=== PATIENT | female | born 1940 | race Caucasian/White ===

== ENCOUNTER 2020-08-05 10:27 | Emergency (ER) | payer OTHER, MEDICAID ==
[~2020-08-05] VITALS: Ht 149.9 cm; Wt 57.6 kg
[2020-08-05 10:33] VITALS: BP 120/72
--- NOTE | 2020-08-05 10:47 | NUR ---
80 YEAR OLD FEMALE COMPLAINS OF LOWER BACK PAIN X 4 DAYS. PT STATES THAT THE PAIN RADIATES FROM LOWER BACK TO LEFT LEG. PT STATES PAIN MAKES IT HARD TO WALK, USES A WALKER. PT DENIES HEAVY LIFTING OR TRAUMA. PT DENIES ANY NEW PROBLEMS WITH URINATION OR DEFECATION. PT AOX4, BREATHING EVEN AND UNLABORED, SKIN WARM AND DRY. BED IN LOWEST POSITION, LOCKED, BED RAIL UPX1. PMH - DM2, APPENDECTOMY, HYSTERECTOMY ALLERGIES - NKA
[2020-08-05] MEDS ORDERED: KETOROLAC 30 MG/ML VIAL IM ONE (10:50)
--- NOTE | 2020-08-05 10:59 | NUR ---
PT TAKEN TO XRAY
[2020-08-05 12:00] VITALS: BP 143/97
--- NOTE | 2020-08-05 12:00 | NUR ---
Patient discharged with v/s stable. Written and verbal after care instructions about sciatica given and explained. Patient alert, oriented and verbalized understanding of instructions. Ambulatory with steady gait. All questions addressed prior to discharge. ID band removed. Patient advised to follow up with PMD. Rx of norco and naprosyn given. Patient educated on indication of medication including possible reaction and side effects. Opportunity to ask questions provided and answered.
== END 2020-08-05 12:00 | disposition home or self-care (01) ==
LOC: MED 10:27
DX: M54.42 Lumbago with sciatica, left side (principal); E11.9 Type 2 diabetes mellitus without complications; Z90.49 Acquired absence of other specified parts of digestive tract; Z98.890 Other specified postprocedural states
CPT/HCPCS: 72100; 96372; 99283; J1885

== ENCOUNTER 2020-12-25 11:01 | Emergency (ER) | payer OTHER, MEDICAID ==
[~2020-12-25] VITALS: Ht 137.2 cm; Wt 55.3 kg
[2020-12-25 11:09] VITALS: BP 118/68
--- NOTE | 2020-12-25 11:13 | NUR ---
PT AMBULATED TO BED 6.
--- NOTE | 2020-12-25 11:28 | NUR ---
Patient being evaluated by Dr. Bowens at bedside.
[2020-12-25] MEDS ORDERED: CIPROFLOXACIN 250 MG TAB PO ONE (11:45)
[2020-12-25] MEDS ORDERED: KETOROLAC 30 MG/ML VIAL IM ONE (11:45)
--- NOTE | 2020-12-25 12:00 | NUR ---
C/O RIGHT EAR PAIN X3 DAYS, 7/10 PAIN, SHARP PAIN RADIATING TO JAW. GREEN DISCHARGE NOTED TO RIGHT EAR. PATIENT STATES HER HEARING IS AFFECTED ON RIGHT EAR. NO FEVER.
[2020-12-25 12:34] VITALS: BP 118/68
--- NOTE | 2020-12-25 12:34 | NUR ---
Patient discharged with v/s stable. Written and verbal after care instructions given and explained. Patient alert, oriented and verbalized understanding of instructions. Ambulatory with steady gait. All questions addressed prior to discharge. ID band removed. Patient advised to follow up with PMD. Rx of CIPROFLOXACIN, ACETAMINOPHEN given. Patient educated on indication of medication including possible reaction and side effects. Opportunity to ask questions provided and answered.
== END 2020-12-25 12:34 | disposition home or self-care (01) ==
LOC: MED 11:01
DX: H60.91 Unspecified otitis externa, right ear (principal); E11.9 Type 2 diabetes mellitus without complications; Z90.49 Acquired absence of other specified parts of digestive tract; Z90.710 Acquired absence of both cervix and uterus
CPT/HCPCS: 96372; 99283; J1885

== ENCOUNTER 2021-01-02 12:50 | Emergency (ER) | payer OTHER, MEDICAID ==
[~2021-01-02] VITALS: Ht 149.9 cm; Wt 55.3 kg
[2021-01-02 13:04] VITALS: BP 114/72
--- NOTE | 2021-01-02 13:13 | NUR ---
PATIENT WHEELCHAIR ASSISTED TO BED 6.
--- NOTE | 2021-01-02 13:22 | NUR ---
80 y/o female from home c/o right ear discomfort with yellow drainage x 1 wk. Pt states she was seen and given antibiotics for ear infection 1 wk ago with no relief of symtpoms. States minor change in hearing to right side. VSS medhx: DM
[2021-01-02] MEDS ORDERED: NACL 0.9% 500 ML IV ONE (13:50)
[2021-01-02] MEDS ORDERED: HYDROcodone/APAP 5/325 MG 1 TAB TAB PO ONE (13:50)
[2021-01-02 14:33] LABS: BASOPHILS % (AUTO) 0.5 % (0.0-2.0); EOSINOPHILS # (AUTO) 0.1 K/uL (0-0.4); HEMATOCRIT 35.8 % (36-48); HEMOGLOBIN 12.2 g/dL (12.0-16.0); LYMPHOCYTES # (AUTO) 1.9 K/uL (2.5-16.5); LYMPHOCYTES % (AUTO) 23.8 % (20.5-51.1); MEAN CORPUSCULAR HEMOGLOBIN 32 pg (27-31); MEAN CORPUSCULAR HGB CONC 34 g/dL (33-37); MEAN CORPUSCULAR VOLUME 93.4 fL (80-94); MONOCYTES # (AUTO) 0.5 K/uL (0.8-1.0); MONOCYTES % (AUTO) 6.6 % (1.7-9.3); NEUTROPHILS # (AUTO) 5.4 K/uL (1.8-7.7); NEUTROPHILS % (AUTO) 68.1 % (42.2-75.2); PLATELET COUNT (AUTO) 390 K/uL (140-450); RED BLOOD CELL COUNT(AUTO) 3.83 MIL/uL (4.20-5.40); RED CELL DISTRIBUTION WIDTH 12.7 % (11.6-13.7); WHITE BLOOD COUNT (AUTO) 7.9 K/uL (4.8-10.8)
--- NOTE | 2021-01-02 14:35 | NUR ---
CONSENT FOR CT WITH CONTRAST OBTAINED FROM PT
[2021-01-02 15:21] LABS: ALBUMIN 3.2 g/dL (3.4-5.0); ANION GAP 9.7 (8-16); ASPARTATE AMINOTRANSFERASE 15 U/L (15-37); CARBON DIOXIDE 29.4 mmol/L (21-32); CHLORIDE 101 mmol/L (98-107); GLUCOSE 204 mg/dL (74-106); POTASSIUM 4.1 mmol/L (3.5-5.1); SODIUM SERUM 136 mmol/L (136-145); TOTAL BILIRUBIN 0.4 mg/dL (0.0-1.0); UREA NITROGEN, BLOOD 18 mg/dL (7-18)
--- NOTE | 2021-01-02 15:23 | NUR ---
PT REPORTS 0/10 PAIN POST PO NORCO
--- NOTE | 2021-01-02 15:25 | NUR ---
CALLED RAD TO LET THEM KNOW PT IS READY FOR CT
--- NOTE | 2021-01-02 15:42 | NUR ---
PT TAKEN TO CT VIA WHEELCHAIR
--- NOTE | 2021-01-02 16:00 | NUR ---
PT RETURNED FROM CT VIA [facility]
[2021-01-02] MEDS ORDERED: PIPERACILLIN/TAZOBACTAM 4.5 GM in DEXTROSE 5% 100 ML IV ONE (16:55)
--- NOTE | 2021-01-02 17:00 | NUR ---
PT RESTING IN BED, EQUAL CHEST RISE AND FALL. BED LOCKED AND IN LOWEST POSITION. SIDE RAILS X1.
[2021-01-02] MEDS ORDERED: PIPERACILLIN/TAZOBACTAM 4.5 GM VIAL IV ONE (17:07)
[2021-01-02] MEDS ORDERED: CIPR500T4 PO (18:03)
[2021-01-02] MEDS ORDERED: GABA300C PO (18:04)
[2021-01-02] MEDS ORDERED: MECL-303 PO (18:04)
[2021-01-02] MEDS ORDERED: MIRA25TE PO (18:06)
[2021-01-02] MEDS ORDERED: INSU100S22 SUBQ (18:06)
[2021-01-02] MEDS ORDERED: METF500T PO (18:07)
[2021-01-02] MEDS ORDERED: VANCOMYCIN 500 MG VIAL ONE (18:23)
[2021-01-02] MEDS: VANCOMYCIN 500 MG in DEXTROSE 5% 100 ML IV SCH (18:31)
--- NOTE | 2021-01-02 18:43 | NUR ---
UMESH SWAB COLLECTED AND TAKEN TO LAB
--- NOTE | 2021-01-02 19:15 | NUR ---
REPORT GIVEN TO BRITTANI SOL. TRANSFER OF CARE AT THIS TIME.
--- NOTE | 2021-01-02 19:17 | NUR ---
RECEIVED REPORT FROM BRITTANI ARCEO FOR CONTINUATION OF CARE AT THIS TIME.
--- NOTE | 2021-01-02 19:45 | NUR ---
pt ambulated to ed restroom with walker
--- NOTE | 2021-01-02 19:51 | NUR ---
PT AMBULATED TO ED BED 6 WITH WALKER
--- NOTE | 2021-01-02 19:55 | NUR ---
PT IS SITTING UPRIGHT WITH HOB ELEVATED IN SEMI FOWLERS POSITION, BED IS LOCKED AND IN LOWEST POSITION, SIDE RAILSX1. NO ACUTE DISTRESS NOTED AT THIS TIME. PT IS ON HER PHONE. CALL LIGHT WITHIN REACH.
--- NOTE | 2021-01-02 20:20 | NUR ---
SPOKE WITH PT TO OBTAIN CONSENT TO GIVE INFORMATION TO GIVE INFORMATION TO HER SON ROXANA MADRID [phone]. HE WAS MADE AWARE THAT THE PT IS IN THE PROCESS OF POSSIBLY BEING TRANSFERRED TO [facility].
--- NOTE | 2021-01-02 20:45 | NUR ---
PT'S SON ROXANA MADRID CALLED BACK AND NOTIFIED THAT THERE IS NOT AN ACCEPTING DOCTOR YET AND THAT HE WILL BE NOTIFIED WHEN THE PT IS TRANSFERRED.
--- NOTE | 2021-01-02 21:00 | NUR ---
PT IS SITTING UPRIGHT WITH HOB ELEVATED IN SEMI FOWLERS POSITION, BED IS LOCKED AND IN LOWEST POSITION, SIDE RAILSX1. NO ACUTE DISTRESS NOTED AT THIS TIME. CALL LIGHT WITHIN REACH.
--- NOTE | 2021-01-02 22:00 | NUR ---
PT AMBULATED TO ED RESTROOM WITH WALKER
--- NOTE | 2021-01-02 22:05 | NUR ---
CALLED [facility] TO BRING PT ZACHARY
--- NOTE | 2021-01-02 22:10 | NUR ---
PT AMBULATED BACK TO ED BED 6 WITH WALKER
--- NOTE | 2021-01-02 23:05 | NUR ---
PT AMBULATED TO ED RESTROOM WITH WALKER
--- NOTE | 2021-01-02 23:12 | NUR ---
CALLED [facility] TO REMIND HIM OF THE PTS REQUEST FOR SANDWICHES
--- NOTE | 2021-01-02 23:15 | NUR ---
PT AMBULATED BACK TO ED BED 5 WITH WALKER
--- NOTE | 2021-01-02 23:29 | NUR ---
PT PROVIDED WITH A TURKEY SANDWICH AT THIS TIME
--- NOTE | 2021-01-02 23:40 | NUR ---
PT IS RESTING WITH HER EYES CLOSED, LIGHTS TURNED OFF PER PT REQUEST. PT IS CONNECTED TO THE BORDER MEASURER. BED IS LOCKED AND IN LOWEST POSITION. SIDE RAILSX1. NO ACUTE DISTRESS NOTED. CALL LIGHT WITHIN REACH.
--- NOTE | 2021-01-03 00:11 | NUR ---
PER ADMITTING RETURN CALL FROM [facility] SQL ANALYST NATALIIA WHO SPOKE WITH ACCEPTING ENT DR. DOMINGUEZ REQUESTING PATIENT BE NPO FOR PLANNED SURGERY TOMORROW AT [facility]. AWAITING CALL BACK FROM NATALIIA WITH INFO ON ACCEPTING HOSPITALIST AND TRANSFER INFORMATION
--- NOTE | 2021-01-03 00:45 | NUR ---
PT IS ASLEEP, VISIBLE RISE AND FALL OF CHEST. PT IS CONNECTED TO THE IMPLEMENTATION PROJECT COORDINATOR, SAO2@99% RA. BED IS LOCKED AND IN LOWEST POSITION. SIDE RAILSX1. NO ACUTE DISTRESS NOTED. CALL LIGHT WITHIN REACH.
[2021-01-03] MEDS ORDERED: VANCOMYCIN 1,000 MG in DEXTROSE 5% 250 ML IV ONE (01:30)
[2021-01-03] MEDS ORDERED: PIPERACILLIN/TAZOBACTAM 3.375 GM in DEXTROSE 5% 50 ML IV ONE (01:30)
[2021-01-03] MEDS ORDERED: PIPERACILLIN/TAZOBACTAM 3.375 GM VIAL IV ONE (01:36)
--- NOTE | 2021-01-03 01:43 | NUR ---
PT IS ASLEEP. PT IS CONNECTED TO THE DISPOSAL PLANT OPERATOR. BED IS LOCKED AND IN LOWEST POSITION. SIDE RAILSX1. NO ACUTE DISTRESS NOTED. CALL LIGHT WITHIN REACH. PT ON ZOSYN IVPB PER ERMD ORDERS. ALL ORDERS CARRIED OUT.
--- NOTE | 2021-01-03 01:50 | NUR ---
PT AMBULATED TO ED RESTROOM WITH WALKER
--- NOTE | 2021-01-03 01:58 | NUR ---
PT AMBULATED BACK TO ED BED 5 WITH WALKER
--- NOTE | 2021-01-03 02:04 | NUR ---
PT PROVIDED WITH CLEAN LINENS AND WARM BLANKETS FOR COMFORT.
--- NOTE | 2021-01-03 03:00 | NUR ---
PT IS ASLEEP. PT IS CONNECTED TO THE ADULT CAREGIVER. BED IS LOCKED AND IN LOWEST POSITION. SIDE RAILSX1. NO ACUTE DISTRESS NOTED. CALL LIGHT WITHIN REACH. ALL ORDERS CARRIED OUT.
--- NOTE | 2021-01-03 03:45 | NUR ---
PT SPEAKING ON THE PHONE WITH HER DAUGHTER, PT REPOSITIONED HERSELF FOR COMFORT, PT IS LYING ON HER LEFT SIDE. PT IS CONNECTED TO THE DREDGING INSPECTOR. NO ACUTE DISTRESS NOTED. BED IS LOCKED AND IN LOWEST POSITION. SIDE RAILSX1. ALL ORDERS CARRIED OUT.
--- NOTE | 2021-01-03 04:45 | NUR ---
PT IS SLEEPING, VISIBLE RISE AND FALL OF CHEST. BED IS LOCKED AND IN LOWEST POSITION. SIDE RAILSX1. NO ACUTE DISTRESS NOTED. ALL ORDERS CARRIED OUT AT THIS TIME.
--- NOTE | 2021-01-03 05:36 | NUR ---
PT IS ASLEEP ON HER LEFT SIDE. BED IS POSITION IN SEMI FOWLERS POSITION, VISIBLE RISE AND FALL OF CHEST. BED IS LOCKED AND IN LOWEST POSITION. SIDE RAILSX1. NO ACUTE DISTRESS NOTED. ALL ORDERS CARRIED OUT AT THIS TIME.
--- NOTE | 2021-01-03 06:00 | NUR ---
REPORT RECEIVED FROM SWETA PETER FOR CONTINUITY OF CARE
--- NOTE | 2021-01-03 06:00 | NUR ---
GAVE REPORT TO BRITTANI WASSERMAN FOR TRANSFER OF CARE AT THIS TIME.
--- NOTE | 2021-01-03 07:12 | NUR ---
REPORT GIVEN TO TREMAINE PETER FOR CONTINUITY OF CARE
--- NOTE | 2021-01-03 07:14 | NUR ---
RECEIVED REPORT FROM LISY PETER. TRANSFER OF CARE AT THIS TIME
--- NOTE | 2021-01-03 08:24 | NUR ---
Wily strickland in [facility] - 01/03/21 at 1316 by [email or web address] PT AMBULATED TO RESTOOM WITH WALKER.
--- NOTE | 2021-01-03 08:29 | NUR ---
PT AMBULATED WITH WALKER WITH STEADY GAIT. BACK IN ROOM AND HOOKED UP TO MONITOR
[2021-01-03] MEDS ORDERED: PIPERACILLIN/TAZOBACTAM 4.5 GM in DEXTROSE 5% 100 ML IV ONE (10:30)
[2021-01-03] MEDS ORDERED: HYDROcodone/APAP 5/325 MG 1 TAB TAB PO ONE (10:30)
--- NOTE | 2021-01-03 10:36 | NUR ---
PT STATING EAR PAIN IS 05/31. DR SHABAZZ MADE AWARE. PT ASKING WHEN IS SHE LEAVING. INFORMED PT THAT WE ARE WAITING FOR A BED TO OPEN UP TO TRANSFER TO A [facility] TO SEE A SPECIALIST.
--- NOTE | 2021-01-03 10:44 | NUR ---
Spoke with anton Wilson [phone] for pt updates at this time.
[2021-01-03] MEDS ORDERED: PIPERACILLIN/TAZOBACTAM 4.5 GM VIAL IV ONE (10:47)
--- NOTE | 2021-01-03 11:43 | NUR ---
PT SLEEPING IN BED, BREATHING EVEN AND UNLABORED. BED IN LOWEST POSITION, BRAKES LOCKED, X1 SIDERAIL UP. VSS. WILL CONTINUE TO MONITOR
--- NOTE | 2021-01-03 13:14 | NUR ---
PT HAD AN INCONTINENT EPISODE. SHEETS CHANGED, PROVIDED NEW GOWN, PAD, AND BRIEFS. PT AMBULATED TO RESTROOM WITH WALKER.
--- NOTE | 2021-01-03 14:50 | NUR ---
PT SLEEPING IN BED WITH EVEN AND UNLABORED RESPIRATIONS OBSERVED. BED IN LOWEST POSITION, BRAKES LOCKED, X1 SIDERAIL UP. VSS. WILL CONTINUE TO MONITOR.
--- NOTE | 2021-01-03 16:29 | NUR ---
PT SLEEPING IN BED WITH EVEN AND UNLABORED RESPIRATIONS OBSERVED. BED IN LOWEST POSITION, BRAKES LOCKED, X1 SIDERAIL UP. VSS. WILL CONTINUE TO MONITOR.
--- NOTE | 2021-01-03 18:07 | NUR ---
REPORT GIVEN TO ALICIA PETER AT [facility]. WAITING FOR TRANSFER TO THE FACILITY.
[2021-01-03] MEDS ORDERED: VANCOMYCIN 1,000 MG VIAL ONE (18:10)
[2021-01-03] MEDS ORDERED: VANCOMYCIN 500 MG VIAL ONE (18:11)
[2021-01-03] MEDS: VANCOMYCIN 500 MG in DEXTROSE 5% 100 ML IV SCH (18:25)
--- NOTE | 2021-01-03 18:37 | NUR ---
Spoke with anton Wilson [phone] for pt updates at this time.
--- NOTE | 2021-01-03 19:13 | NUR ---
RECIVED REPORT FROM BENITA PETER. CONTINUATION OF CARE.
--- NOTE | 2021-01-03 19:14 | NUR ---
GAVE REPORT TO KENDELL PETER. TRANSFER OF CARE AT THIS TIME.
--- NOTE | 2021-01-03 19:33 | NUR ---
TRANSFER CONSENT SIGNED BY PATIENT. PATIENT ALERT AND ORIENTED X 4. PATIENT IN BED EATING DINNER. VSS. IV REMAINS PATIENT.
[2021-01-03 20:08] VITALS: BP 109/74
--- NOTE | 2021-01-03 20:08 | NUR ---
Patient to be transferred to [facility]. Is being transferred due to R MASTOIDITIS. Receiving facility has accepting physician and available space. ER physician has signed transfer form. Patient or responsible libertarian has agreed to transfer and signed form. Patient belongings inventoried and will be sent with patient. Copy of nursing notes, lab reports, EKG, Physicians Orders and X-rays to be sent with patient. Report called to ALICIA PETER BY BENITA PETER at receiving facility.
--- NOTE | 2021-01-03 20:08 | NUR ---
PATIENT PICKED UP BY [facility] FOR TRANSPORT TO [facility].
== END 2021-01-02 20:08 | disposition short-term general hospital (02) ==
LOC: MED 12:50
DX: H70.91 Unspecified mastoiditis, right ear (principal); H60.391 Other infective otitis externa, right ear; H66.91 Otitis media, unspecified, right ear; E11.9 Type 2 diabetes mellitus without complications; R42 Dizziness and giddiness; Z79.899 Other long term (current) drug therapy; Z20.828 Contact with and (suspected) exposure to other viral communicable diseases
CPT/HCPCS: 36415; 70481; 80053; 83605; 85025; 87040; 87426; 96365; 96367; 99285; J2543; J3370; J7030; J7060; Q9967; J7120

== ENCOUNTER 2022-11-17 11:05 | Emergency (ER) | payer OTHER, MEDICAID ==
[~2022-11-17] VITALS: Ht 149.9 cm; Wt 57.2 kg
[~2022-11-17 11:05] MED LIST: CIPR500T4 PO; GABA300C PO; INSU100S22 SUBQ; MECL-303 PO; METF-346 PO; MIRA25TE PO
--- NOTE | 2022-11-17 11:10 | NUR ---
pt placed in bed 06 by amr
[2022-11-17 11:14] VITALS: BP 132/82
--- NOTE | 2022-11-17 11:19 | NUR ---
82 y/o female biba from home, pt is c/o left shoulder pain and headache 5/10 in relation to fall down stairs at home. unwitnessed. pt denies loc, syncope, blood thinners, states she got dizzy and fell down 4-5 steps of stairs. a&ox4, hard of hearing, ambulates with assist at this time. pmh: dm2, neuropathy, glaucoma nka med: lantus
--- NOTE | 2022-11-17 11:45 | NUR ---
MD STEPHENS AT BEDSIDE FOR EVALUATION
[2022-11-17] MEDS ORDERED: LIDOCAINE 5% 1 EA PATCH TP ONE ×2 (11:50→11:51)
[2022-11-17] MEDS ORDERED: ACETAMINOPHEN 325 MG TAB PO ONE (11:50)
[2022-11-17] MEDS ORDERED: ACETAMINOPHEN 325 MG TAB ONE (11:51)
--- NOTE | 2022-11-17 11:55 | NUR ---
XRAY AT BEDSIDE
[2022-11-17 12:21] LABS: BASOPHILS # (AUTO) 0.1 K/uL (0.00-0.22); EOSINOPHILS # (AUTO) 0.1 K/uL (0-0.4); EOSINOPHILS % (AUTO) 1.7 % (0.0-4.0); HEMATOCRIT 37.7 % (36-48); HEMOGLOBIN 12.7 g/dL (12.0-16.0); LYMPHOCYTES # (AUTO) 2.2 K/uL (2.5-16.5); LYMPHOCYTES % (AUTO) 32.7 % (20.5-51.1); MEAN CORPUSCULAR HEMOGLOBIN 31 pg (27-31); MEAN CORPUSCULAR HGB CONC 34 g/dL (33-37); MEAN CORPUSCULAR VOLUME 93.2 fL (80-94); MONOCYTES # (AUTO) 0.4 K/uL (0.8-1.0); MONOCYTES % (AUTO) 6.7 % (1.7-9.3); NEUTROPHILS # (AUTO) 3.8 K/uL (1.8-7.7); NEUTROPHILS % (AUTO) 57.9 % (42.2-75.2); PLATELET COUNT (AUTO) 199 K/uL (140-450); RED BLOOD CELL COUNT(AUTO) 4.05 MIL/uL (4.20-5.40); RED CELL DISTRIBUTION WIDTH 12.5 % (11.6-13.7); WHITE BLOOD COUNT (AUTO) 6.6 K/uL (4.8-10.8)
[2022-11-17 12:41] LABS: ALBUMIN 3.6 g/dL (3.4-5.0); ANION GAP 12.2 (8-16); ASPARTATE AMINOTRANSFERASE 15 U/L (15-37); CHLORIDE 106 mmol/L (98-107); CREATININE 0.8 mg/dL (0.6-1.3); GLUCOSE 193 mg/dL (74-106); POTASSIUM 4.2 mmol/L (3.5-5.1); SODIUM SERUM 142 mmol/L (136-145); TOTAL BILIRUBIN 0.7 mg/dL (0.0-1.0); UREA NITROGEN, BLOOD 22 mg/dL (7-18)
--- NOTE | 2022-11-17 14:25 | NUR ---
sling applied to l arm. + cms
--- NOTE | 2022-11-17 14:37 | NUR ---
HELENA IRIZARRY MADE AWARE OF PT D/C.
--- NOTE | 2022-11-17 14:45 | NUR ---
Note em in EDM - 11/17/22 at 1456 by PHSEP Patient discharged with v/s stable. Written and verbal after care instructions FOR SHOULDER PAIN, FALL PREVENTION AND DIZZINESS given and explained. Patient verbalized understanding. Ambulatory with to car. All questions addressed prior to discharge. Advised to follow up with PMD. ANDRE VILLALBA PROVIDED HOME
[2022-11-17 14:54] VITALS: BP 132/82
--- NOTE | 2022-11-17 14:54 | NUR ---
Patient discharged with v/s stable. Written and verbal after care instructions FOR RADIAL HEAD AND CAST/SPLINT CARE given and explained. Patient alert, oriented and verbalized understanding of instructions. Wheel Chair Assisted with to car. All questions addressed prior to discharge. ID band removed. Patient advised to follow up with PMD. Rx of IBUPROFEN given. Opportunity to ask questions provided and answered.
--- NOTE | 2022-11-17 15:00 | NUR ---
The patient's care was reviewed and supervised by Stacie House, RN, RN.
== END 2022-11-17 14:54 | disposition home or self-care (01) ==
LOC: MED 11:05
DX: S49.92XA Unspecified injury of left shoulder and upper arm, initial encounter (principal); S09.90XA Unspecified injury of head, initial encounter; E11.9 Type 2 diabetes mellitus without complications; Z79.4 Long term (current) use of insulin; Z79.899 Other long term (current) drug therapy; W10.9XXA Fall (on) (from) unspecified stairs and steps, initial encounter; Y93.89 Activity, other specified; Y92.89 Other specified places as the place of occurrence of the external cause; Y99.8 Other external cause status
CPT/HCPCS: 36415; 70450; 71045; 72125; 73030; 80053; 83880; 84484; 85025; 93005; 99285; Q0092

== ENCOUNTER 2024-03-15 11:41 | Inpatient (IN) | payer OTHER, MEDICAID ==
[~2024-03-15] VITALS: Ht 144.8 cm; Wt 62.1 kg
[2024-03-15 11:47] VITALS: BP 158/89; PULSE 67; RESP 16; TEMP 96.7; O2SAT 98
[2024-03-15] MEDS ORDERED: cefTRIAXone 1,000 MG VIAL ONE (12:34)
[2024-03-15] MEDS: cefTRIAXone 1,000 MG in DEXT 5% MINI-BAG PLUS 50 ML IV ONE (12:36)
[2024-03-15 12:43] LABS: BASOPHILS % (AUTO) 0.5 % (0.0-2.0); EOSINOPHILS # (AUTO) 0.1 K/uL (0-0.4); EOSINOPHILS % (AUTO) 1.7 % (0.0-4.0); HEMATOCRIT 38.6 % (36-48); HEMOGLOBIN 13.1 g/dL (12.0-16.0); LYMPHOCYTES # (AUTO) 1.6 K/uL (2.5-16.5); LYMPHOCYTES % (AUTO) 27.9 % (20.5-51.1); MEAN CORPUSCULAR HEMOGLOBIN 32 pg (27-31); MEAN CORPUSCULAR HGB CONC 34 g/dL (33-37); MEAN CORPUSCULAR VOLUME 93.5 fL (80-94); MONOCYTES # (AUTO) 0.4 K/uL (0.8-1.0); MONOCYTES % (AUTO) 6.6 % (1.7-9.3); NEUTROPHILS # (AUTO) 3.5 K/uL (1.8-7.7); NEUTROPHILS % (AUTO) 63.3 % (42.2-75.2); PLATELET COUNT (AUTO) 244 K/uL (140-450); RED BLOOD CELL COUNT(AUTO) 4.12 MIL/uL (4.20-5.40); RED CELL DISTRIBUTION WIDTH 13.8 % (11.6-13.7); WHITE BLOOD COUNT (AUTO) 5.6 K/uL (4.8-10.8)
[2024-03-15 13:17] LABS: ANION GAP 15.1 (8-16); CALCIUM 9.8 mg/dL (8.5-10.1); CARBON DIOXIDE 26.9 mmol/L (21-32); CHLORIDE 105 mmol/L (98-107); CREATININE 0.7 mg/dL (0.6-1.3); GLUCOSE 90 mg/dL (74-106); SODIUM SERUM 143 mmol/L (136-145); UREA NITROGEN, BLOOD 26 mg/dL (7-18)
[2024-03-15 13:25] LABS: LACTIC ACID 1.8 mmol/L (0.4-2.0)
[2024-03-15] MEDS ORDERED: ACETAMINOPHEN 325 MG TAB PO PRN (14:05)
[2024-03-15] MEDS ORDERED: ONDANSETRON 4 MG/2 ML VIAL IVP PRN (14:05)
[2024-03-15] MEDS ORDERED: HYDROcodone/APAP 5/325 MG 1 TAB TAB PO PRN (14:05)
[2024-03-15] MEDS: DEXT 5% /NACL 0.9% 1,000 ML IV SCH (14:21)
[2024-03-15 14:43] LABS: APPEARANCE,URINE SLIGHTLY CLOUDY (CLEAR); BILIRUBIN,URINE NEGATIVE (NEGATIVE); BLOOD, URINE NEGATIVE (NEGATIVE); COLOR,URINE YELLOW (YELLOW); LEUKOCYTE ESTERASE ,URINE NEGATIVE (NEGATIVE); NITRITE, URINE POSITIVE (NEGATIVE); PROTEIN,URINE NEGATIVE (NEGATIVE); UGLUCOSE NEGATIVE (NEGATIVE); UROBILINOGEN,URINE 0.2 EU/dL (0.2 - 1)
[2024-03-15 14:46] LABS: BACTERIA,URINE 1+ /HPF (None Seen); RBC,URINE 0-5 /HPF (0-5); WBC,URINE 0-5 /HPF (0-5)
[2024-03-15 14:47] LABS: MUCUS,URINE None Seen /LPF (None Seen); SQUAMOUS EPITHELIAL CELL,UR 0-3 (FEW) /LPF (0-3 (FEW))
[2024-03-15] MEDS ORDERED: BRIM5DRO OP (15:04)
[2024-03-15] MEDS ORDERED: LATA2.5S14 OP (15:04)
[2024-03-15 15:49] VITALS: BP 124/69; PULSE 76; RESP 18; TEMP 97; O2SAT 96
[2024-03-15 16:06] VITALS: PULSE 76; RESP 18; O2SAT 96
[2024-03-15 16:24] VITALS: PULSE 73
[2024-03-15] MEDS: BLOOD GLUCOSE MONITORING 1 DEV DEV FS SCH (16:36)
[2024-03-15 20:00] VITALS: BP 128/71; PULSE 73; PULSE 75; PULSE 76; RESP 18; TEMP 97.5; O2SAT 96
[2024-03-15] MEDS: GABAPENTIN 300 MG CAP PO SCH (20:33)
[2024-03-15] MEDS ORDERED: NON-FORMULARY ITEM (Mirabegron (Myrbetriq) 1 TAB) PO SCH (21:00)
[2024-03-15] MEDS: LATANOPROST 0.005% OP 2.5 ML BTL OP SCH (21:05)
[2024-03-16] VITALS (10 sets, daily range): BP systolic 108–134; BP diastolic 60–75; PULSE 63–88; RESP 18–19; TEMP 96.8–98; O2SAT 96–98
[2024-03-16] MEDS: DEXTROSE 50% 50 ML SYR IVP PRN (06:20)
[2024-03-16 07:02] LABS: BASOPHILS % (AUTO) 0.7 % (0.0-2.0); EOSINOPHILS # (AUTO) 0.2 K/uL (0-0.4); EOSINOPHILS % (AUTO) 3.1 % (0.0-4.0); HEMATOCRIT 33.8 % (36-48); HEMOGLOBIN 11.6 g/dL (12.0-16.0); LYMPHOCYTES # (AUTO) 2.4 K/uL (2.5-16.5); LYMPHOCYTES % (AUTO) 42.6 % (20.5-51.1); MEAN CORPUSCULAR HEMOGLOBIN 32 pg (27-31); MEAN CORPUSCULAR HGB CONC 35 g/dL (33-37); MEAN CORPUSCULAR VOLUME 92.6 fL (80-94); MONOCYTES # (AUTO) 0.5 K/uL (0.8-1.0); NEUTROPHILS # (AUTO) 2.6 K/uL (1.8-7.7); NEUTROPHILS % (AUTO) 45.6 % (42.2-75.2); PLATELET COUNT (AUTO) 235 K/uL (140-450); RED BLOOD CELL COUNT(AUTO) 3.65 MIL/uL (4.20-5.40); RED CELL DISTRIBUTION WIDTH 13.5 % (11.6-13.7); WHITE BLOOD COUNT (AUTO) 5.6 K/uL (4.8-10.8)
[2024-03-16 07:11] LABS: ANION GAP 11.9 (8-16); CALCIUM 8.9 mg/dL (8.5-10.1); CARBON DIOXIDE 28.2 mmol/L (21-32); CHLORIDE 108 mmol/L (98-107); CREATININE 0.8 mg/dL (0.6-1.3); POTASSIUM 4.1 mmol/L (3.5-5.1); SODIUM SERUM 144 mmol/L (136-145); UREA NITROGEN, BLOOD 21 mg/dL (7-18)
[2024-03-16 07:30] LABS: GLUCOSE 46 mg/dL (74-106)
[2024-03-16] MEDS: MECLIZINE 25 MG TAB PO SCH (08:10)
[2024-03-17] VITALS: BP 111/68; PULSE 69; PULSE 81; RESP 19; TEMP 97.6; O2SAT 96
[2024-03-17 04:00] VITALS: BP 128/74; PULSE 78; PULSE 81; RESP 20; TEMP 97; O2SAT 94
[2024-03-17 06:19] LABS: BASOPHILS % (AUTO) 0.7 % (0.0-2.0); EOSINOPHILS # (AUTO) 0.2 K/uL (0-0.4); EOSINOPHILS % (AUTO) 3.6 % (0.0-4.0); HEMATOCRIT 33.7 % (36-48); HEMOGLOBIN 11.6 g/dL (12.0-16.0); LYMPHOCYTES # (AUTO) 2.9 K/uL (2.5-16.5); LYMPHOCYTES % (AUTO) 45.2 % (20.5-51.1); MEAN CORPUSCULAR HEMOGLOBIN 32 pg (27-31); MEAN CORPUSCULAR HGB CONC 35 g/dL (33-37); MEAN CORPUSCULAR VOLUME 92.8 fL (80-94); MONOCYTES # (AUTO) 0.4 K/uL (0.8-1.0); MONOCYTES % (AUTO) 6.8 % (1.7-9.3); NEUTROPHILS # (AUTO) 2.8 K/uL (1.8-7.7); NEUTROPHILS % (AUTO) 43.7 % (42.2-75.2); PLATELET COUNT (AUTO) 219 K/uL (140-450); RED BLOOD CELL COUNT(AUTO) 3.63 MIL/uL (4.20-5.40); RED CELL DISTRIBUTION WIDTH 13.7 % (11.6-13.7); WHITE BLOOD COUNT (AUTO) 6.5 K/uL (4.8-10.8)
[2024-03-17 06:36] LABS: CALCIUM 9.1 mg/dL (8.5-10.1); CHLORIDE 107 mmol/L (98-107); CREATININE 0.9 mg/dL (0.6-1.3); GLUCOSE 116 mg/dL (74-106); SODIUM SERUM 141 mmol/L (136-145); UREA NITROGEN, BLOOD 21 mg/dL (7-18)
[2024-03-17 08:00] VITALS: BP 115/60; PULSE 64; PULSE 70; RESP 17; TEMP 97.9; O2SAT 98
== END 2024-03-17 11:35 | disposition home health service (06) | DRG 638 ==
LOC: MED 11:41 → MTU 14:06
PROVIDERS: ADMIT Family Medicine; ATTEND Family Medicine
DX: E11.649 Type 2 diabetes mellitus with hypoglycemia without coma (principal); N39.0 Urinary tract infection, site not specified; N17.9 Acute kidney failure, unspecified; Z79.899 Other long term (current) drug therapy
CPT/HCPCS: 36415; 71045; 80048; 81001; 82948; 83036; 83605; 83735; 83880; 84484; 85025; 87040; 87081; 87086; 93005; 96365; 99285; J0696; J8597